=== PATIENT | male | born 1945 | race Caucasian/White ===

== ENCOUNTER 2019-02-03 10:00 | Day surgery (SDC) | payer MEDICARE, OTHER ==
[2019-02-03] MEDS ORDERED: LIDOCAINE 2% (SDV) 5 ML INJ (12:53)
[2019-02-03] MEDS ORDERED: PROPOFOL 20 ML (12:53)
[2019-02-03] MEDS ORDERED: FENTAnyl 50 MCG/ML VIAL (12:53)
== END 2019-02-03 13:52 | disposition home or self-care (01) ==
LOC: GIL 10:00
DX: K21.9 Gastro-esophageal reflux disease without esophagitis (principal); K29.60 Other gastritis without bleeding; I10 Essential (primary) hypertension; E78.5 Hyperlipidemia, unspecified
CPT/HCPCS: 43239; 88305; 88312

== ENCOUNTER 2019-03-06 13:38 | Emergency (ER) | payer MEDICARE, OTHER | END 2019-03-06 18:18 | disposition home or self-care (01) | LOC: E/R 13:38 | DX: I83.813 Varicose veins of bilateral lower extremities with pain (principal) | CPT/HCPCS: 93971; 99284-25 ==